=== PATIENT | female | born 1980 | race Caucasian/White ===

== ENCOUNTER 2016-11-07 19:42 | Emergency (ER) | payer MEDICAID ==
[~2016-11-07] VITALS: Ht 157.5 cm; Wt 51.3 kg
[2016-11-07 19:53] VITALS: BP 106/73
--- NOTE | 2016-11-07 21:05 | NUR ---
PATIENT TO ER BED 6.
--- NOTE | 2016-11-07 21:15 | NUR ---
Patient being evaluated by physician at bedside.
[2016-11-07 21:36] VITALS: BP 111/63
--- NOTE | 2016-11-07 21:36 | NUR ---
Patient discharged with v/s stable. Written and verbal after care instructions given and explained. Patient alert, oriented and verbalized understanding of instructions. Ambulatory with steady gait. All questions addressed prior to discharge. ID band removed. Patient advised to follow up with PMD. Rx of Tramadol and Zofran given. Patient educated on indication of medication including possible reaction and side effects. Opportunity to ask questions provided and answered.
== END 2016-11-07 21:36 | disposition home or self-care (01) ==
LOC: MED 19:42
DX: K80.20 Calculus of gallbladder without cholecystitis without obstruction (principal); J45.909 Unspecified asthma, uncomplicated; K80.80 Other cholelithiasis without obstruction
CPT/HCPCS: 76705; 81002; 81025; 99284